=== PATIENT | female | born 1995 | race Caucasian/White ===

== ENCOUNTER 2024-02-04 21:06 | Inpatient (IN) | payer MEDICAID, SELFPAY ==
[2024-02-04] VITALS (14 sets, daily range): BP systolic 116–139; BP diastolic 56–92; PULSE 86–104; RESP 16; TEMP 36.2; O2SAT 84–99; BMI 33.4
[2024-02-04] MEDS: Lactated Ringers 1,000 ML 50 ML IV (21:25)
[2024-02-04 21:40] LABS: Absolute Lymphocyte Count 2.04 X10^3/uL (0.83-4.51); Absolute Neutrophil Count 8.7 X10^3/uL (2.0-7.7); Basophil# 0.05 X10^3/uL; Basophil% 0.4 % (0-1); Eosinophil# 0.08 X10^3/uL; Eosinophils% 0.7 % (0-5); Hemoglobin 12.5 g/dL (12.0-15.0); Lymphocyte # 2.04 X10^3/ul (0.83-4.51); Lymphocyte % 17.5 % (19-41); Mean Corp Hgb Conc 33.8 g/dL (32-36); Mean Corpuscular Hgb 29.7 pg (27.0-32.0); Mean Corpuscular Volume 87.9 fL (81-99); Mean Platelet Vol. 11.1 fl (6.2-12.0); Monocyte# 0.76 X10^3/uL; Monocyte% 6.5 % (0-10); NRBC Flagged by Analyzer 0 % (0-5); Neutrophil # 8.68 X10^3/uL (2.7-7.7); Neutrophil % 74.4 % (47-70); Platelet Count 221 K/mm3 (150-450); RBC Distribution Width CV 13.6 % (11.6-14.6); RBC Distribution Width SD 43.4 fl (35.1-43.9); Red Blood Count 4.21 M/mm3 (4.2-5.4); White Blood Count 11.7 K/mm3 (4.4-11.0)
[2024-02-04 22:04] LABS: ALB/GLOB Ratio 0.7 RATIO (0.9-2.4); AST(SGOT) 16 U/L (15-37); Alanine Aminotransfer ALT/SGPT 18 U/L (13-56); Albumin, Serum 2.8 g/dL (3.2-5.0); Alkaline Phosphatase 147 U/L (45-117); Anion Gap 8 (5-15); BUN 9 mg/dL (7-18); BUN/Creat Ratio 12.4 RATIO (10-20); Calcium,Total 9.6 mg/dL (8.5-10.1); Chloride 106 mmol/L (98-107); Creatinine, Serum 0.73 mg/dL (0.55-1.02); EST Glomerular Filtration Rate 101 mL/min (>60); Est Glom Filt Rate - Afr Amer 123 mL/min (>60); Estimated Creatinine Clearance 118.93 ml/min; Globulin 4.3 g/dL (2.2-4.2); Glucose 106 mg/dL (74-106); Potassium 3.4 mmol/L (3.5-5.1); Protein, Total 7.1 g/dL (6.4-8.2); Sodium Level 136 mmol/L (136-145)
[2024-02-04] MEDS: Mag /Aluminum/Simeth WCH UDC 30 ML ORAL.SUSP PO (22:08)
[2024-02-04 22:19] LABS: Syphilis Antibodies Non-reactive
[2024-02-04] MEDS: miSOPROStol 25 MCG TABLET PO (22:38)
--- NOTE | 2024-02-04 23:02 | PCM.HP.OB ---
HPI - General General Date of Admission: 02/04/24 Date of Service: 02/04/24 Chief Complaint: induction of labor HPI Narrative JOSUE SO, is a 29 F who presents induction of labor. EFW 99% at 36 weeks and polyhydramnios (25). Maternal Data Information Final ELVIRA: 02/07/24 Gestational age: 39+4 PFSH PFS Medical History Polyhydramnios macrosomia Anxiety hemorrhage Home Medications ?Medication ?Instructions ?Recorded ?Last Taken ?Type PNV#14-iron [id number] cap PO 02/04/24 Unknown History 27 mg iron-1 mg-300 mg-50 mg capsule Allergy/AdvReac Type Severity Reaction Status Date / Time adhesive tape AdvReac Rash Verified 02/04/24 21:52 Surgical History History of surgery Social History Smoking Status: Never smoker History Elective abortions Hx Para 1 Spontaneous abortions Hx # Term Pregnancies Ectopic pregnancies Hx # Pregnancies Multiple births # of living children NST FHR Rate Baby A Baseline: 125 Variability:: Moderate Accelerations:: 15 x 15 Decelerations:: None NST Reactive:: Yes FHR Category:: Category I ROS Constitutional Constitutional: Denies fatigue, fever(s) or malaise Eyes Eyes: Denies change in vision ENT HEENT: Denies dizziness or headache(s) Cardiovascular Cardiovascular: Denies chest pain, dyspnea or lightheadedness Respiratory/Chest Respiratory/Chest: Denies cough or dyspnea Gastrointestinal Gastrointestinal: Denies change in bowel habits Genitourinary Genitourinary: Denies burning urination or genital lesions Integumentary Integumentary: Denies rash Neurologic Neurologic: Denies confusion, dizziness, headache(s), numbness or weakness Vital Signs Vital Signs Vital Signs: 02/04/24 21:17 02/04/24 21:17 02/04/24 21:18 Temperature Temperature Source Pulse Rate 93 97 Respiratory Rate Blood Pressure 139/92 H BP Systolic 139 BP Diastolic 92 Pulse Ox 02/04/24 21:18 02/04/24 21:18 02/04/24 21:18 Temperature Temperature Source Temporal Pulse Rate Respiratory Rate 16 Blood Pressure BP Systolic BP Diastolic Pulse Ox 99 02/04/24 21:18 02/04/24 21:47 02/04/24 21:47 Temperature 97.1 F L Temperature Source Pulse Rate 103 H Respiratory Rate Blood Pressure BP Systolic BP Diastolic Pulse Ox 98 02/04/24 21:52 02/04/24 21:52 02/04/24 21:57 Temperature Temperature Source Pulse Rate 104 H 88 Respiratory Rate Blood Pressure BP Systolic BP Diastolic Pulse Ox 98 02/04/24 21:57 02/04/24 22:02 02/04/24 22:02 Temperature Temperature Source Pulse Rate 93 Respiratory Rate Blood Pressure BP Systolic BP Diastolic Pulse Ox 98 98 02/04/24 22:07 02/04/24 22:07 02/04/24 22:12 Temperature Temperature Source Pulse Rate 98 103 H Respiratory Rate Blood Pressure BP Systolic BP Diastolic Pulse Ox 98 02/04/24 22:12 02/04/24 22:17 02/04/24 22:17 Temperature Temperature Source Pulse Rate 99 Respiratory Rate Blood Pressure BP Systolic BP Diastolic Pulse Ox 98 94 02/04/24 22:17 02/04/24 22:17 02/04/24 22:22 Temperature Temperature Source Pulse Rate 92 99 Respiratory Rate Blood Pressure BP Systolic BP Diastolic Pulse Ox 94 02/04/24 22:22 02/04/24 22:27 02/04/24 22:27 Temperature Temperature Source Pulse Rate 87 Respiratory Rate Blood Pressure BP Systolic BP Diastolic Pulse Ox 93 84 02/04/24 22:32 02/04/24 22:32 02/04/24 22:37 Temperature Temperature Source Pulse Rate 91 86 Respiratory Rate Blood Pressure BP Systolic BP Diastolic Pulse Ox 98 02/04/24 22:37 02/04/24 22:42 02/04/24 22:42 Temperature Temperature Source Pulse Rate 86 Respiratory Rate Blood Pressure 116/56 L BP Systolic 116 BP Diastolic 56 Pulse Ox 97 02/04/24 22:42 02/04/24 22:42 Temperature Temperature Source Pulse Rate 99 Respiratory Rate Blood Pressure BP Systolic BP Diastolic Pulse Ox 98 Weight Weight: 85.548 kg Body Mass Index (BMI) 33.4 Physical Exam Const alert and no apparent distress General Appearance: cooperative HEENT normocephalic Resp normal respiratory effort Cardio regular rate GI soft to palpation GI Narrative: gravid, nontender, appropriate for gestational age Extremity no calf tenderness General Extremity: edema Skin no wounds Rashes: No rashes noted Psych activity/motor behavior normal Labs Labs Labs: Blood Type A NEGATIVE Antibody Screen NEGATIVE Hct 37.0 % (37-47) Hgb 12.5 g/dL (12.0-15.0) Syphilis Total Ab Non-reactive Assessment & Plan (1) LGA (large for gestational age) fetus: (2) 39 weeks gestation of : (3) Polyhydramnios affecting : PLAN: Plan cytotec and martinez gbs negative epidural prn
[2024-02-04] MEDS: Ondansetron 4 MG/2 ML Vial IV (23:24)
[2024-02-04] MEDS: 0.9% Saline Lock 10 ML Syringe IV (23:24)
[2024-02-05] VITALS (38 sets, daily range): BP systolic 108–136; BP diastolic 59–87; PULSE 64–214; RESP 16; TEMP 36.8–37.3; O2SAT 82–100
[2024-02-05] MEDS: miSOPROStol 25 MCG TABLET PO ×2 (02:52→07:01)
[2024-02-05] MEDS: 0.9% Saline Lock 10 ML Syringe IV (02:58)
[2024-02-05] MEDS: Ondansetron 4 MG/2 ML Vial IV ×3 (02:58→21:26)
[2024-02-05] MEDS: 0.9% Normal Saline Single 100 ML IV.SOLN. INTRA-UTER (06:58)
--- NOTE | 2024-02-05 07:03 | PN.OBGYN_ITS ---
Subjective Subjective Martinez bulb placed. /50/-3 soft. Cat I tracing. cytotec #3. Objective Data Objective Data Vital Signs: Vital Signs Temp Pulse Resp BP Pulse Ox 97.1 F L 101 H 16 126/78 H 97 02/04/24 21:18 02/05/24 02:54 02/04/24 21:18 02/05/24 02:54 02/05/24 02:54 Weight: 85.548 kg Body Mass Index (BMI) 33.4 Lab / Micro Data 02/04/24 21:25 02/04/24 21:25 Labs: Laboratory Results - last 24 hr 02/04/24 21:25: WBC 11.7 H, RBC 4.21, Hgb 12.5, Hct 37.0, MCV 87.9, MCH 29.7, MCHC 33.8, RDW Std Deviation 43.4, RDW Coeff of Brock 13.6, Plt Count 221, MPV 11.1, Immature Gran % (Auto) 0.500, Neut % (Auto) 74.4 H, Lymph % (Auto) 17.5 L, Cameron % (Auto) 6.5, Eos % (Auto) 0.7, Baso % (Auto) 0.4, Absolute Neuts (auto) 8.7 H, Absolute Lymphs (auto) 2.04, Nucleated RBC % 0, Sodium 136, Potassium 3.4 L, Chloride 106, Carbon Dioxide 22.0, Anion Gap 8, BUN 9, Creatinine 0.73, Estim Creat Clear Calc 118.93, Est GFR (MDRD) Af Amer 123, Est GFR (MDRD) Non-Af 101, BUN/Creatinine Ratio 12.4, Glucose 106, Calcium 9.6, Total Bilirubin 0.40, AST 16, ALT 18, Alkaline Phosphatase 147 H, Total Protein 7.1, Albumin 2.8 L, G lobulin 4.3 H, Albumin/Globulin Ratio 0.7 L, Syphilis Total Ab Non-reactive, Blood Type A NEGATIVE, Antibody Screen NEGATIVE NST FHR Rate Baby A Baseline: 125 Variability:: Moderate Accelerations:: 15 x 15 Decelerations:: None NST Reactive:: Yes FHR Category:: Category I Uterine Activity:: q 2 Assessment & Plan (1) LGA (large for gestational age) fetus: (2) 39 weeks gestation of : (3) Polyhydramnios affecting : PLAN: Plan cytotec and martinez gbs negative epidural prn
[2024-02-05] MEDS: Oxytocin 15 Units/NS 250ml 15 UNITS/250 ML IV.SOLN 2 UNITS IV (11:04)
[2024-02-05] MEDS: Lactated Ringers 1,000 ML 999 ML IV (11:15)
[2024-02-05] MEDS: fentaNYL-bupivacaine (epidural) 100 ML BAG EPIDURAL ×3 (11:43→23:22)
[2024-02-05] MEDS: Lactated Ringers 1,000 ML 200 ML IV ×3 (12:17→21:30)
[2024-02-06] VITALS (21 sets, daily range): BP systolic 105–137; BP diastolic 53–82; PULSE 76–110; RESP 14–16; TEMP 36.1–38.3; O2SAT 98
[2024-02-06] MEDS: LACTATED RINGERS 500 ML 999 ML IV
[2024-02-06] MEDS: Acetaminophen 500 MG Tablet PO (03:26)
[2024-02-06] MEDS: Lactated Ringers 1,000 ML 200 ML IV (03:32)
[2024-02-06] MEDS: Ondansetron 4 MG/2 ML Vial IV (04:17)
[2024-02-06] MEDS: 0.9% Saline Lock 10 ML Syringe IV (04:17)
[2024-02-06] MEDS: Methylergonovine 0.2 MG/ML Ampul IM (04:53)
[2024-02-06] MEDS: Oxytocin 15 Units/NS 250ml 15 UNITS/250 ML IV.SOLN 334 UNITS IV (05:04)
--- NOTE | 2024-02-06 05:07 | EX.PCM.OBRPT ---
Assessment & Plan (1) (spontaneous vaginal delivery): (2) Single live : Maternal Data Information Final ELVIRA: 02/07/24 Gestational age: 39 6/7 Vaginal Delivery Maternal Presentation Maternal Presentation: Medically Indicated Induction Type of Induction: Pitocin, Bar Bulb, Amniotomy and Cytotec Medical Reason for Induction: - (LGA, polyhydramnios) Operative Information Date of Procedure: 02/06/24 Pre-Operative Diagnosis: labor Post-Operative Diagnosis: same Surgery / Procedure Performed: Spontaneous Vaginal Delivery Type of Anesthesia: Epidural Special Medications: none Drain: Bar to straight drain Estimated Blood Loss: 300 Time of Delivery: 04:47 Findings Description of Procedure: A vigorous female was delivered RAFITA over an intact perineum. The remainder the infant was delivered with maternal pushing and gentle traction only in less than 15 seconds. The Pitocin infusion was initiated for active management of the third stage. The cord was clamped and cut soon after delivery because of the thick meconium. The was attended to by the waiting nursing staff. The placenta was delivered spontaneously and intact. The cervix and vagina were intact. Sponge and needle counts were correct. A vaginal sweep was completed by me. Presentation: RAFITA Amniotic Membrane Rupture Type: Artificial Amniotic Fluid Description: Clear (terminal thick meconium) Placental Delivery Description: Expressed Placenta Disposition: [facility] Cord Vessel Description: 3 Vessels Cord Entanglement: None Infant A Gender: Female (1 minute): 8 (5 minute): 8 Delayed Cord Clamping: No Post Vaginal Delivery Medications Given After Delivery: IV Pitocin and IM Methergin Episiotomy Description: None Laceration: None Complication Complications: None
[2024-02-06] MEDS: Oxytocin 15 Units/NS 250ml 15 UNITS/250 ML IV.SOLN 83 UNITS IV (05:24)
[2024-02-06] MEDS: Ibuprofen 600 MG Tablet PO ×2 (07:42→20:20)
[2024-02-06] MEDS: Rho(D) Immune Globulin 300 MCG (1500 Unit) Syringe IV (12:43)
[2024-02-06] MEDS: Acetaminophen 500 MG Tablet 1000 MG PO ×2 (14:29→22:06)
[2024-02-07 00:31] VITALS: BP 107/56; PULSE 83
[2024-02-07 01:00] VITALS: BP 107/56; PULSE 80; RESP 14; TEMP 36.6; O2SAT 98
[2024-02-07 08:37] VITALS: BP 111/55; PULSE 76
[2024-02-07] MEDS: Acetaminophen 500 MG Tablet 1000 MG PO (08:42)
[2024-02-07 08:45] VITALS: BP 111/55; PULSE 76; RESP 16; TEMP 36.4; O2SAT 99
--- NOTE | 2024-02-07 10:41 | DS.PCM_ITS ---
Providers Date of Admission: 02/04/24 Primary Care Physician: No Primary Care Phys Reason For Visit: VAGINAL Diagnosis Discharge Diagnosis (1) (spontaneous vaginal delivery): Status: Acute Code(s): O80 - Encounter for full-term uncomplicated delivery (2) Single live : Status: Acute Code(s): Z37.0 - Single live Medications at Discharge Home Medications PNV#14-iron [id number] 27 mg iron-1 mg-300 mg-50 mg capsule cap PO 02/04/24 Hospital Course Operations None Procedures None Summary of Care Provided Minutes Spent on Discharge: 15 Hospital Course: Patient had vaginal delivery. Hospital course was uneventful. Physical Exam Narrative Patient seen at bedside. Denies pain. Ambulating and voiding without difficulty. Lochia decreased. Desires discharge home today. Const alert and oriented x3 General Appearance: Negative for in distress HEENT normocephalic Eyes General Eye: normal appearance of both eyes Neck General: normal visual inspection Chest Chest: symmetrical chest wall rise Resp normal respiratory effort and normal air movement Effort and Inspection: symmetric chest movement; Negative for tachypneic Auscultation: clear to auscultation bilaterally Cardio regular rate and regular rhythm Peripheral Pulses: pulses 2+ throughout GI normal to inspection, nondistended, normoactive bowel sounds Narrative: Ice to perineum OB / External & Speculum: vaginal bleeding and other Lochia decreasing Uterus Palpation: uterus fundus firm (Below U) Extremity normal to inspection, full ROM and normal capillary refill Skin no rashes or lesions noted Neuro oriented x3, CN's II-XII intact bilaterally and gait normal Psych mental status grossly normal, thought process normal and activity/motor behavior normal Weight / BMI Weight Weight: 188 lb 9.6 oz Body Mass Index (BMI) 33.4 ABG / Lab / Microbiology Data 02/04/24 21:25 02/04/24 21:25 Laboratory: Laboratory Results - last 24 hr 02/06/24 11:00: Screen NEGATIVE, Baby's Blood Type O POSITIVE, Baby's JOLYNN NEGATIVE D/C Instructions Discharge Diet: No restrictions Discharge Activity: Return to Normal Activity, No Restrictions, May Drive, May Shower and May Take a Tub Bath (Warm water only. No bath salts, soaps, bubbles) May resume sexual activity in: 6-8 weeks Weight Bearing Status: Weight bearing as tolerated Call your doctor if you observe: Fever of 101 or Higher, Inability to urinate, Using more than 1 pad per hour, Shortness of breath, Dizziness, Chest pain, Calf discomfort and Uncontrolled pain Please Follow Up With: [facility] Violeta HUGGINS When: 2 weeks in office or virtual Meaningful Use Info Meaningful Use Meaningful Use Diagnoses (Choose all that apply): None applicable Ischemic Stroke Statin Dosing Therapy Reference: STATIN DOSE THERAPY REFERENCE: * Patients > 75 years receive moderate or high dose statin therapy. * Patients 75 years or YOUNGER should receive HIGH intensity statin dose unless contraindicated. You will be required to document reason for non-treatment if statin daily dose does not meet guidelines. HIGH DOSE STATIN THERAPY DAILY Atorvastatin > than or = to 40 mg Rosuvastatin > than or = to 20 mg Amlodipine + Atorvastatin > than or = to 2.5/40 mg Ezetimibe + Simvastatin 10/80 mg Simvastatin 80mg Discharge Plan Admission Admit Date/Time: 02/04/24 21:06 Attending Provider: Tammi Frazier Primary Care Provider: Care Physician,No Primary Instructions Patient Instructions: After a Vaginal Discharge Orders/Prescriptions Prescriptions: No Action PNV #14-iron-[id number] 27 mg iron-1 mg -300 mg-50 mg capsule PO Referrals / Follow Up: Ivy Mazariegos CNM [Med Staff - Adv Practice Prof] - Care Physician,No Primary [Primary Care Provider] - Disposition Disposition (needs filled in before D/C Order can be placed): Home, Self Care
== END 2024-02-07 11:20 | disposition home or self-care (01) | DRG 560 ==
PROVIDERS: Obstetrics & Gynecology; Admitting Provider Obstetrics & Gynecology; Referring Provider Obstetrics & Gynecology; Visit Provider Obstetrics & Gynecology
DX: O40.3XX0 Polyhydramnios, third trimester, not applicable or unspecified (principal); Z37.0 Single live birth; O36.63X0 Maternal care for excessive fetal growth, third trimester, not applicable or unspecified; O77.0 Labor and delivery complicated by meconium in amniotic fluid; Z3A.39 39 weeks gestation of pregnancy
CPT/HCPCS: 59050; 80053; 85025; 85461; 86780; 86850; 86900; 86901; 90384; 99221; J7120; A4216; G0378; J2405; J2790; J2791